=== PATIENT | female | born 1935 | race Caucasian/White ===

== ENCOUNTER 2018-11-04 13:14 | Inpatient (IN) | payer OTHER ==
[2018-11-04] MEDS ORDERED: Morphine 10 MG/0.5 ML Oral Syringe PO PRN (13:23)
[2018-11-04] MEDS ORDERED: Haloperidol 1 MG Tab PO PRN (13:24)
[2018-11-04] MEDS ORDERED: Ibuprofen 200 MG Tab PO PRN (13:25)
[2018-11-04] MEDS ORDERED: Hyoscyamine 0.125 MG Tab.SL SL PRN (13:32)
[2018-11-04] MEDS ORDERED: oxyCODONE 5 MG Tab PO PRN (13:34)
[2018-11-04] MEDS: Carbidopa/Levodopa 25-100 MG Tab PO SCH ×2 (15:05→23:08)
[2018-11-04] MEDS: Sennosides 8.6 MG Tab PO SCH (23:09)
[2018-11-05] MEDS: Carbidopa/Levodopa 25-100 MG Tab PO SCH ×2 (08:02→14:22)
[2018-11-05] MEDS ORDERED: Metoprolol Succinate 100 MG Tab.ER PO SCH (09:00)
[2018-11-05] MEDS: Sennosides 8.6 MG Tab PO SCH (09:04)
[2018-11-05] MEDS: Amantadine 100 MG Cap PO SCH (09:04)
[2018-11-05 09:07] VITALS: BP 136/98
[2018-11-06] MEDS: Carbidopa/Levodopa 25-100 MG Tab PO SCH ×4 (06:55→22:14)
[2018-11-06] MEDS ORDERED: Metoprolol Succinate 50 MG Tab.ER ONE (08:48)
[2018-11-06] MEDS: Amantadine 100 MG Cap PO SCH (08:57)
[2018-11-06] MEDS: METOPROLOL SUCCINATE 50 MG PO SCH ×2 (08:58→09:00)
[2018-11-06] MEDS: Sennosides 8.6 MG Tab PO SCH ×3 (08:58→22:14)
[2018-11-06] MEDS ORDERED: Ibuprofen 600 MG Tab PO SCH (17:00)
[2018-11-07] MEDS: Carbidopa/Levodopa 25-100 MG Tab PO SCH ×3 (07:41→21:29)
[2018-11-07] MEDS: Amantadine 100 MG Cap PO SCH (09:36)
[2018-11-07] MEDS: Sennosides 8.6 MG Tab PO SCH ×2 (09:36→21:29)
[2018-11-07] MEDS: METOPROLOL SUCCINATE 50 MG PO SCH (09:38)
[2018-11-07] MEDS: Ibuprofen 200 MG Tab PO SCH (18:54)
[2018-11-08] MEDS: Carbidopa/Levodopa 25-100 MG Tab PO SCH ×3 (06:51→21:37)
[2018-11-08] MEDS: Sennosides 8.6 MG Tab PO SCH ×2 (10:15→21:37)
[2018-11-08] MEDS: Amantadine 100 MG Cap PO SCH (10:15)
[2018-11-08] MEDS: Ibuprofen 200 MG Tab PO SCH (16:52)
[2018-11-08] MEDS: METOPROLOL SUCCINATE 50 MG PO SCH (16:58)
[2018-11-09] MEDS: Carbidopa/Levodopa 25-100 MG Tab PO SCH (05:00)
[2018-11-09] MEDS: Sennosides 8.6 MG Tab PO SCH (10:05)
[2018-11-09] MEDS: Amantadine 100 MG Cap PO SCH (10:05)
[2018-11-09] MEDS: METOPROLOL SUCCINATE 50 MG PO SCH (10:05)
== END 2018-11-09 11:00 | DRG 57 ==
LOC: MW.MS 13:14
PROVIDERS: ADMIT Internal Medicine; ATTEND Internal Medicine
DX: G20 Parkinson's disease (principal); Z75.5 Holiday relief care
CPT/HCPCS: A9270-GY